=== PATIENT | male | born 2000 | race Two or more races ===

== ENCOUNTER 2025-02-22 16:03 | Emergency (ER) | payer OTHER ==
[~2025-02-22] VITALS: Ht 152.4 cm; Wt 70.3 kg
[2025-02-22] MEDS ORDERED: KETOROLAC TROMETHAMINE 60 MG VIAL IM ONE ×2 (18:45→19:15)
[2025-02-22] MEDS ORDERED: IBUPROFEN600 MG PO (18:48)
== END 2025-02-22 19:27 | disposition home or self-care (01) ==
LOC: ER 16:04
DX: S49.81XA Other specified injuries of right shoulder and upper arm, initial encounter (principal); V49.88XA Car occupant (driver) (passenger) injured in other specified transport accidents, initial encounter; Y93.89 Activity, other specified; Y92.89 Other specified places as the place of occurrence of the external cause; Y99.8 Other external cause status